=== PATIENT | female | born 1970 | race Caucasian/White ===

== ENCOUNTER 2018-11-03 08:28 | Day surgery (SDC) | payer OTHER ==
[~2018-11-03 08:28] MED LIST: ACETAZOLAMIDE 250 MG TAB PO
[2018-11-03] MEDS ORDERED: TROPICAMIDE 1% 15 ML OPH OPER (09:00)
[2018-11-03] MEDS: ACETAMINOPHEN 500 MG TAB PO (09:14)
[2018-11-03] MEDS: PHENYLephrine 2.5% 15 ML OPH OPER (09:24)
[2018-11-03] MEDS: TETRACAINE 0.5% 4 ML OPH OPER ×2 (09:24→11:20)
[2018-11-03] MEDS ORDERED: LACTATED RINGER'S 1,000 ML IV (09:30)
[2018-11-03] MEDS ORDERED: FENTAnyl 50 MCG/ML VIAL IV (10:30)
[2018-11-03] MEDS ORDERED: ALBUTEROL 0.083% (NEB) 2.5 MG/3 ML AMP HHN (10:30)
[2018-11-03] MEDS ORDERED: MITOMYCIN 5 MG INJ OP (10:30)
[2018-11-03] MEDS ORDERED: ACETAMINOPHEN 325 MG TAB PO (10:30)
[2018-11-03] MEDS ORDERED: ONDANSETRON 4 MG INJ IV (10:30)
[2018-11-03] MEDS ORDERED: DIPHENHYDRAMINE 50 MG INJ IV (10:30)
[2018-11-03] MEDS ORDERED: OXYCODONE/ACETAMINOPHEN (5/325) TAB PO (10:30)
[2018-11-03] MEDS ORDERED: LABETALOL HCL 20MG INJ IV (10:30)
[2018-11-03] MEDS ORDERED: hydrALAzine 20 MG INJ IV (10:30)
[2018-11-03] MEDS ORDERED: BALANCED SALT SOLN 15 ML OPH IRRIG (10:40)
[2018-11-03] MEDS ORDERED: MOXIFLOXACIN 0.5% 3 ML OPH (10:40)
[2018-11-03] MEDS ORDERED: LIDOCAINE 4% (MPF) 5 ML INJ INJ (11:00)
[2018-11-03] MEDS ORDERED: MIDAZOLAM 1 MG/ML 2 ML INJ ×2 (11:04→11:11)
[2018-11-03] MEDS: LIDOCAINE 4% (MPF) 5 ML INJ (11:19)
[2018-11-03] MEDS: TOBRAMYCIN/DEXAMETH 3.5 GM OPH OINT (11:20)
[2018-11-03] MEDS ORDERED: BALANCED SALT SOLN OPH IRRIG 500 ML, EPINEPHrine 0.1 MG, GENTAMICIN 4 MG, VANCOMYCIN 10 MG IRR (12:00)
[2018-11-03] MEDS ORDERED: NEOMYC/POLYMYX/DEXAM 3.5GM OPH OINT OPER (13:30)
[2018-11-03] MEDS ORDERED: APRACLONIDINE 1% 0.1 ML OPH OPER (13:30)
== END 2018-11-03 13:12 | disposition home or self-care (01) ==
LOC: SDS 08:28
DX: H11.003 Unspecified pterygium of eye, bilateral (principal); I10 Essential (primary) hypertension
CPT/HCPCS: 65420